=== PATIENT | male | born 1995 | race Caucasian/White ===

== ENCOUNTER 2016-09-01 12:47 | Emergency (ER) | payer BC ==
[2016-09-01] MEDS ORDERED: DEXAMETHASONE 4 MG TAB PO ONE (14:27)
--- NOTE | 2016-09-01 14:30 | EDPHY ---
H & P Stated Complaint: l sinus pressure l ear pain x 48 hrs stuffy nose Source: Patient Exam Limitations: No limitations - Personal History Current Tetanus/Diphtheria Vaccine: Yes - Medical/Surgical History Hx Asthma: No Hx Chronic Respiratory Disease: No Hx Diabetes: No Hx Cardiac Disease: No Hx Renal Disease: No Hx Cirrhosis: No Hx Alcoholism: No Hx HIV/AIDS: No Hx Splenectomy or Spleen Trauma: No Other PMH: denies - Social History Smoking Status: Current every day smoker HPI/ROS: CHIEF COMPLAINT: Sinus pain, headache, ear pain HISTORY OF PRESENT ILLNESS: Patient complains of 2 days history of left-sided sinus headache pain, left ear pain and fullness, runny nose and sore throat. Symptoms were gradual onset. Constant duration. Moderate to severe. No neck stiffness but he does have some left-sided neck pain. No trauma or injury. No chest pain or shortness of breath. Associated with left-sided dental pain. Ibuprofen [id number] has not changed his symptoms. No other associated complaints or modifying factors. REVIEW OF SYSTEMS: Ten systems reviewed and are negative unless otherwise noted in the HPI PAST MEDICAL HISTORY: Denies any medical history SOCIAL HISTORY: Occasional smoker FAMILY HISTORY: Not contribute EXAMINATION General Appearance: Alert, no distress Head: normocephalic, atraumatic Eyes: Pupils equal and round, no conjunctival pallor or injection ENT, Mouth: Mucous membranes moist. Uvula midline. There is no erythema or edema. There is posterior nasal drip. Bilateral EACs clear. Bilateral TMs clear with serous fluid behind the left TM. No erythema perforation. There is tenderness to palpation of the left maxillary sinus and left frontal sinus. Neck: Normal inspection, supple, non-tender Respiratory: Lungs are clear to auscultation. No wheezing rhonchi or crackles. Cardiovascular: Regular rate and rhythm Gastrointestinal: Abdomen is soft and nontender Back: non-tender, no bony abnormalities Neurological: A&O, nonfocal, normal gait Skin: Warm and dry, no rash Extremities: Nontender, no pedal edema Psychiatric: Mood and affect normal DIFFERENTIAL DIAGNOSES: Including but not limited to acute sinusitis, chronic sinusitis, cephalgia, meningitis, pharyngitis, otitis MDM: 2:28 p.m. Acute left maxillary sinusitis. No pharyngitis. No abnormality on auscultation of the lungs. No otitis. No evidence of meningitis. Vital signs were well within normal limits. Treat with Augmentin, [id number] pseudoephedrine, [id number] ibuprofen, Flonase and short course of pain medication. He is to follow up here for any worsening symptoms, neck pain or stiffness, persistent fever or abruptly injured headache. Follow up with primary care physician or in Nose and Throat for definitive care otherwise. He is comfortable with this plan and discharged home stable condition. SUPERVISION: This patient was independently evaluated without direct examination by the attending physician. Case was discussed with attending physician. (Onel Goel) Constitutional: Initial Vital Signs Temperature (C) 36.5 C 09/01/16 12:50 Heart Rate 71 09/01/16 12:50 Respiratory Rate 18 09/01/16 12:50 Blood Pressure 103/73 09/01/16 12:50 O2 Sat (%) 97 09/01/16 12:50 O2 Delivery Mode Room Air Allergies/Adverse Reactions: No Known Allergies Allergy (Unverified 09/01/16 12:50) Home Medications: Medication Instructions Recorded Amoxicillin/Clavulanate Pot 875 mg PO BID #20 tab 09/01/16 [Augmentin 875 MG TAB (*)] Fluticasone Nasal [Flonase Nasal 1 sprays NASAL BID #1 mdi 09/01/16 [facility] (RX)] Hydrocodone/APAP 5/325 [Nemo 1 - 2 tab PO Q4H PRN #10 tab 09/01/16 5/325 (*)] Medical Decision Making Other Provider: The patient wasevaluatedand managed by themidlevel provider. Idiscussed the patient's presentation and course with thephysicianassistantor nurse practitionerand agree with theevaluation. My co-signature indicates that I have reviewed this chart and I agree with the findings and plan of care as documented. I am the secondary supervisingphysician. (Cayla Serrato) - Data Points Medications Given: Discontinued Medications Dexamethasone (Decadron) 8 mg PO EDNOW ONE Stop: 09/01/16 14:28 Last Admin: 09/01/16 14:45 Dose: 8 mg Departure - Departure Disposition: Home, Routine, Self-Care Clinical Impression: Maxillary sinusitis, acute Condition: Good Instructions: Pseudoephedrine (By mouth), Sinusitis (ED), Upper Respiratory Infection (ED) Additional Instructions: 1. Augmentin prescription as prescribed to completion 2. Nemo as prescribed for moderate to severe pain only as needed 3. Pseudoephedrine [id number] as prescribed on the box 4. Ibuprofen 600-800 mg every 8 hours or Aleve 1 pill twice daily but not both 5. Flonase as prescribed twice daily for 10-14 days and then once daily 6. Follow up with primary care physician or ENT physician for further care 7. Mucinex [id number] 1200 mg twice daily as needed 8. Return here for worsening headache, neck stiffness, fever, chills Referrals: NONE *PRIMARY CARE P,. [Primary Care Provider] - As per Instructions Preet Castro MD [Medical Doctor] - As per Instructions Stand Alone Forms: Work Excuse Prescriptions: Amoxicillin/Clavulanate Pot [Augmentin 875 MG TAB (*)] 875 mg PO BID #20 tab Fluticasone Nasal [Flonase Nasal [facility] (RX)] 1 sprays NASAL BID #1 mdi Hydrocodone/APAP 5/325 [Nemo 5/325 (*)] 1 - 2 tab PO Q4H PRN #10 tab PRN Reason: Pain, Moderate
[2016-09-01 14:56] VITALS: BP 110/74; PULSE 65; RESP 16; TEMP 97.9; O2SAT 96
== END 2016-09-01 14:56 | disposition home or self-care (01) ==
DX: J01.00 Acute maxillary sinusitis, unspecified (principal); F17.200 Nicotine dependence, unspecified, uncomplicated